=== PATIENT | female | born 1955 | race Caucasian/White ===

== ENCOUNTER 2016-11-08 19:32 | Emergency (ER) | payer MEDICARE, OTHER ==
[~2016-11-08 19:32] MED LIST: ACID REFLUX MED; ADVAIR 100-501 EAC1; ADVAIR 100-501 EAC1 IH; ADVAIR 1001 DISK W/D; ADVAIR 1001 DISK W/D IH; ADVAIR 250-501 EAC1 IH; ADVAIR 250-501 EACH IH; ADVAIR 2501 DISK W/1 IH; ADVAIR 2501 DISK W/D PO; ADVAIR 5001 DISK W/1; ALBUTEROL MININEB NEB; ALBUTEROL0.83 MG/ML; ALBUTEROL0.83 MG/ML IH; ALBUTEROL17 GM; ALBUTEROL17 GM INH; ALLERGY10 M1 PO; ALPRAZOLAM; ALPRAZOLAM PO; AMOXICILLIN875 MG PO; ANSAID100 MG PO; ARICEPT PO; ASPIRIN81 MG PO; ATARAX PO; ATIVAN; ATIVAN PO; BENADRYL25 M1 PO; BENZONATATE PO; BYSTOLIC10 MG PO; CARDIZEM30 M1 PO; CHOLESTEROL MED; CITALOPRAM HBR10 MG PO; DELTASONE20 MG PO; DOXEPIN PO; DOXYCYCLINE HY100 M1 PO; DOXYCYCLINE MO100 MG PO; ELIMITE60 G1 TP; FIORCET PO; FIORICET1 TAB PO; FLEXERIL10 M1 PO; FLEXERIL10 MG PO; FOSAMAX70 MG PO; HYDRALAZINE HC100 MG PO; IBUPROFEN800 MG PO; IMDUR-ER60 M1 PO; INHALERS; LACTULOSE10 G/15 ML PO; LASIX20 MG PO; LEVAQUIN PO; LEVOTHYROXINE100 MCG PO; LIPITOR; LIPITOR PO; LIPITOR20 MG; LIPITOR20 MG PO; LORTAB 5/500 TA1 TA2 PO; MEDROL DOSEPAK4 MG PO; MINOXIDIL2.5 MG PO; MOBIC15 MG PO; MOTRIN600 M1 PO; MOTRIN600 M2 PO; MULTIVITAMIN1 UDCAP PO; NAPROSYN500 MG PO; NAPROXEN PO; NAPROXEN250 MG PO; NORCO1 TAB 10/3 PO; NORFLEX100 M1 PO; OMEPRAZOLE PO; OMEPRAZOLE20 M2 PO; PATIENT'S PHARMACY; PHENERGAN PO; PHENERGAN VC W120 M1 PO; PHENERGAN W/CO120 ML PO; PHENERGAN25 M1; PHENERGAN25 M1 DOB; PHENERGAN25 M1 PO; PHENERGAN25 MG PO; PLAVIX PO; POTASSIUM CHLO20 ME1 PO; PRAVASTATIN SOD40 MG PO; PREDNISONE PO; PREDNISONE10 MG/DOSE PO; PREVACID PO; PRILOSEC; PRILOSEC PO; PRILOSEC20 M1 PO; PRILOSEC20 MG; PRILOSEC20 MG DOB; PRILOSEC20 MG PO; PROCTOFOAM-HC F10 GM PR; PROMETHAZINE D118 ML PO; PROMETHAZINE W118 M2 PO; PROTONIX PO; PROVENTIL INH0.5 ML HHN; REMERON PO; ROBAXIN 750750 M1 PO; ROBAXIN500 MG PO; SEROQUEL; SEROQUEL PO; SEROQUEL XR150 MG PO; STOOL SOFTENER1 EAC1 PO; SYMBICORT 160/4.6 G1 INH; SYMBICORT INH; TUSSIONEX PENN473 ML PO; TYLENOL #3; TYLENOL #3 PO; VIBRAMYCIN100 M1 PO; VICODIN 5/1 TAB 5/50 PO; VISTARIL PO; VOLTAREN50 MG PO; VOLTAREN75 MG PO; XANAX PO; XANAX0.5 M1; XANAX0.5 M1 PO; XANAX1 MG PO; XANAX2 MG PO; ZANAFLEX4 M1 PO; ZANTAC; ZITHROMAX; ZITHROMAX PO; ZOCOR PO; ZOFRAN ODT4 MG PO; ZOFRANODT; ZOLOFT PO; ZYLOPRIM100 MG PO; [UNRECOGNIZED DRUG - REMARK]; [UNRECOGNIZED DRUG - REMARK]; [UNRECOGNIZED DRUG - REMARK]; [UNRECOGNIZED DRUG - REMARK]
== END 2016-11-08 20:25 | disposition home or self-care (01) ==
LOC: SED 19:32
DX: J44.1 Chronic obstructive pulmonary disease with (acute) exacerbation (principal); F17.200 Nicotine dependence, unspecified, uncomplicated; K21.9 Gastro-esophageal reflux disease without esophagitis; F41.9 Anxiety disorder, unspecified; E78.5 Hyperlipidemia, unspecified
CPT/HCPCS: 94640; 99283

== ENCOUNTER 2016-11-09 11:45 | Emergency (ER) | payer MEDICARE, OTHER | END 2016-11-09 12:15 | disposition home or self-care (01) | LOC: SED 11:45 | DX: G43.909 Migraine, unspecified, not intractable, without status migrainosus (principal); F32.9 Major depressive disorder, single episode, unspecified; I10 Essential (primary) hypertension; J44.9 Chronic obstructive pulmonary disease, unspecified; K21.9 Gastro-esophageal reflux disease without esophagitis; F17.210 Nicotine dependence, cigarettes, uncomplicated; Z79.899 Other long term (current) drug therapy | CPT/HCPCS: 96372; 99284; J1170; J2550 ==

== ENCOUNTER 2016-11-18 19:25 | Emergency (ER) | payer MEDICARE, OTHER | END 2016-11-18 20:20 | disposition home or self-care (01) | LOC: SED 19:25 | DX: R04.0 Epistaxis (principal); F17.210 Nicotine dependence, cigarettes, uncomplicated; J44.9 Chronic obstructive pulmonary disease, unspecified | CPT/HCPCS: 96372; 99283; J1200 ==

== ENCOUNTER 2016-12-16 21:20 | Emergency (ER) | payer MEDICARE, OTHER ==
--- NOTE | ~2016-12-16 | EKG ---
PATIENT: DAVID GERMAIN UNIT #: [id number] Ventricular Rate: 94 BPM Atrial Rate: 94 BPM P-R Interval: 144 ms QRS Duration: 78 ms Q-T Interval: 342 ms QTC Calculation(Bezet): 427 ms P [place]: 69 degrees Calculated R [place]: 47 degrees Calculated T [place]: 67 degrees Diagnosis Line: Normal sinus rhythm Diagnosis Line: Normal ECG Diagnosis Line: When compared with ECG of 13-SEP-2016 08:59, Diagnosis Line: No significant change was found Diagnosis Line: Confirmed by MOJGAN RAIN MD ([id number]) on 12/20/2016 Diagnosis Line: 9:25:40 AM INTERPRETING MD: KOFFI JAMES
--- NOTE | ~2016-12-16 | CR72 ---
[facility]. [facility] A Service of [facility] RADIOLOGY TEXT RESULTS PATIENT: DAVID GERMAIN LOCATION: SED : 55 UNIT #: [id number] AGE: [address]: Juventino Alexander MD SEX: F ORDER DR: [id number] [place] [id number] E MR#: [id number] Acc #: [id number] NAME: DAVID GERMAIN. : 1955 SEX: F STUDY DATE/TIME: 12/16/2016 20:48 UNIT: SED ROOM: STUDY DESCRIPTION: CR Chest Single View Portable Attending Physician: Juventino Alexander M.D. Ordering Physician: Juventino Alexander M.D. Primary Care Physician: China Salazar M.D. MEDICAL IMAGING REPORT This report is preliminary unless electronic signature is present. EXAM Portable chest. HISTORY Shortness of air and wheezing for 5 days. FINDINGS Mild hyperinflation of both lungs. Cardiac size and pulmonary vascularity are normal. No airspace infiltrates or effusions. Small calcified granuloma left lower lung. IMPRESSION No acute findings. No active disease. Dictated by... Yared Bowen M.D. THIS IS AN ELECTRONICALLY VERIFIED REPORT Yared Bowen M.D. at 12/16/2016 11:48 PM FRITZ/renata TD: 12/16/2016 23:19 JOB #: [id number] MEDICAL IMAGING REPORT Page 1 of 1
[2016-12-16 21:25] LABS: BASOPHIL% 0.7 % (0-2.5); EOSINOPHIL% 1.1 % (0.0-7.0); HEMOGLOBIN 14.4 gm/dL (12.0-16.0); LYMPHOCYTE% 44.9 % (17.0-45.0); MEAN CELL VOLUME 93.5 FL (83-96); MEAN CORPUSCULAR HEMOGLOBIN 31.4 PG (28-34); MEAN CORPUSCULAR HGB CONC 33.5 g/dL (30-36); MEAN PLATELET VOLUME 7.5 FL (6.5-11.5); MONOCYTE# 0.3 X10e3 (0-1.0); MONOCYTE% 6.2 % (3.0-12.0); NEUTROPHIL# 2.1 X10e3 (1.5-7.1); NEUTROPHIL% 47.1 % (40-75); PLATELET COUNT 173 X10e3 (140-420); RED CELL DISTRIBUTION WIDTH 14.5 % (11.0-15.5); WHITE BLOOD COUNT 4.4 X10e3 (4.0-10.5)
[2016-12-16 21:26] LABS: DIFF IND NO
[2016-12-16 21:36] LABS: CALCIUM SERUM 9.5 mg/dL (8.4-10.2); CREATININE SERUM 0.7 mg/dL (0.6-1.4); GLOM FILT RATE Estimated 93.5 mL/min (>60); POTASSIUM 3.8 mmol/L (3.5-5.1)
[2016-12-16 21:40] LABS: POC - CKMB 1.1 ng/mL (0.0-7.9); POC - TROPONIN <0.05 ng/mL (<=0.05)
== END 2016-12-16 22:19 | disposition home or self-care (01) ==
LOC: SED 21:20
PROVIDERS: Emergency Medicine
DX: J44.1 Chronic obstructive pulmonary disease with (acute) exacerbation (principal); F41.9 Anxiety disorder, unspecified; K21.9 Gastro-esophageal reflux disease without esophagitis; F17.200 Nicotine dependence, unspecified, uncomplicated
CPT/HCPCS: 36415; 71010; 80048; 82553; 84484; 85025; 93005; 94640; 96374; 99284; J2930

== ENCOUNTER → 2016-12-28 | Outpatient (CLI) | payer MEDICARE, OTHER ==
--- NOTE | ~2016-12-28 | MY6 ---
[facility] A Service [facility] RADIOLOGY TEXT RESULTS PATIENT: DAVID GERMAIN LOCATION: [facility] : 55 UNIT #: [id number] AGE: [address]: Leila Robbins SEX: F ORDER DR: [id number] [place] [id number] [facility]. [place], [place] [address] [id number] O MR#: [id number] Acc #: [id number] NAME: DAVID GERMAIN. : 1955 SEX: F STUDY DATE/TIME: 12/28/2016 12:19 UNIT: [facility] ROOM: STUDY DESCRIPTION: MY Mammogram Dx Dig Vadim Attending Physician: Leila Robbins A.P.R.N. Referring Physician: Leila Robbins A.P.R.N. Ordering Physician: Leila Robbins A.P.R.N. Primary Care Physician: Leila Robbins A.P.R.N. MEDICAL IMAGING REPORT This report is preliminary unless electronic signature is present EXAM Bilateral digital diagnostic mammogram INDICATIONS Palpable mass in the left breast. PROCEDURE Bilateral CC, ML and left true lateral views obtained on a digital mammography unit FDA-approved CAD device utilized. COMPARISON STUDIES 03/11/14 FINDINGS Scattered fibroglandular density. No dominant mass. No suspicious calcification. Targeted left breast ultrasound shows no sonographic abnormality in the area of palpable concern at the 9-10 o'clock position. IMPRESSION Negative left diagnostic mammogram and left breast ultrasound. Recommend continued clinical followup. Suggest patient continue with yearly screening. Patients over the age of 40 are entered into a reminder system with target due date for the next mammogram. A result letter will also be sent to the patient. BIRADS: 1 Negative [facility] A Service [facility] RADIOLOGY TEXT RESULTS PATIENT: DAVID GERMAIN LOCATION: [facility] : 55 UNIT #: [id number] AGE: [address]: Leila Robbins SEX: F ORDER DR: Dictated by... Frantz Dickey M.D. THIS IS AN ELECTRONICALLY VERIFIED REPORT Frantz Dickey M.D. at 12/29/2016 7:02 AM AIMEE/robb TD: 12/28/2016 21:14 JOB #: [id number] MEDICAL IMAGING REPORT Page 1 of 1 COPY
--- NOTE | ~2016-12-28 | US24 ---
[facility] A Service [facility] RADIOLOGY TEXT RESULTS PATIENT: DAVID GERMAIN LOCATION: [facility] : 55 UNIT #: [id number] AGE: [address]: Leila Robbins SEX: F ORDER DR: [id number] [facility] [address] [facility]. [place], [place] [address] [id number] O MR#: [id number] Acc #: [id number] NAME: DAVID GERMAIN. : 1955 SEX: F STUDY DATE/TIME: 12/28/2016 12:49 UNIT: [facility] ROOM: STUDY DESCRIPTION: US Breast Unilateral Attending Physician: Leila Robbins A.P.R.N. Referring Physician: Leila Robbins A.P.R.N. Ordering Physician: Leila Robbins A.P.R.N. Primary Care Physician: Leila Robbins A.P.R.N. MEDICAL IMAGING REPORT This report is preliminary unless electronic signature is present EXAM Left breast ultrasound INDICATIONS Palpable mass in the left breast. PROCEDURE Snowden-scale imaging of the left breast in the area of palpable concern. COMPARISON STUDIES Concurrently for diagnostic mammogram. FINDINGS / IMPRESSION Refer to diagnostic mammogram for complete workup, as recommendations. BIRADS 1 Patients over the age of 40 are entered into a reminder system with target due date for the next mammogram. A result letter will also be sent to the patient. BIRADS: 1 Negative Dictated by... Frantz Dickey M.D. THIS IS AN ELECTRONICALLY VERIFIED REPORT Frantz Dickey M.D. at 12/29/2016 7:02 AM EED/robb TD: 12/28/2016 21:28 [facility] A Service [facility] RADIOLOGY TEXT RESULTS PATIENT: DAVID GERMAIN LOCATION: [facility] : 55 UNIT #: [id number] AGE: [address]: Leila Robbins SEX: F ORDER DR: JELENA #: [id number] MEDICAL IMAGING REPORT Page 1 of 1 COPY
== END | disposition home or self-care (01) ==
LOC: CMAM 12:10
DX: N64.4 Mastodynia (principal); Z87.2 Personal history of diseases of the skin and subcutaneous tissue
CPT/HCPCS: 76641; G0204

== ENCOUNTER 2017-02-05 19:21 | Emergency (ER) | payer MEDICARE, OTHER ==
--- NOTE | ~2017-02-05 | CR63 ---
[facility]. [facility] A Service of [facility] & [facility] RADIOLOGY TEXT RESULTS PATIENT: DAVID GERMAIN LOCATION: SED : 55 UNIT #: [id number] AGE: [address]: Juventino Alexander MD SEX: F ORDER DR: [id number] [address] [address] [id number] E MR#: [id number] Acc #: [id number] NAME: DAVID GERMAIN. : 1955 SEX: F STUDY DATE/TIME: 02/05/2017 20:14 UNIT: SED ROOM: STUDY DESCRIPTION: CR Chest 2 View Attending Physician: Juventino Alexander M.D. Ordering Physician: Juventino Alexander M.D. Primary Care Physician: Leila Robbins A.P.R.N. MEDICAL IMAGING REPORT This report is preliminary unless electronic signature is present. EXAM Chest, 2 views, dated 02/05/2017. COMPARISON Single view chest dated 12/16/2016. HISTORY Wheezing for 2 days. History of asthma. FINDINGS Two views of the chest were obtained. Stable calcified left lingular lung nodule, likely relating to old granulomatous disease. Lungs are mildly hyperinflated suspicious for mild emphysematous changes. No significant patchy dense consolidation, pleural effusion, or pneumothorax. Heart is of normal size. Mediastinum and bones are unremarkable. Dictated by... Tommy Morrison M.D. THIS IS AN ELECTRONICALLY VERIFIED REPORT Tommy Morrison M.D. at 02/08/2017 3:33 PM CPR/tmw TD: 02/06/2017 10:27 JOB #: [id number] MEDICAL IMAGING REPORT Page 1 of 1
== END 2017-02-05 21:45 | disposition home or self-care (01) ==
LOC: SED 19:21
DX: J44.0 Chronic obstructive pulmonary disease with (acute) lower respiratory infection (principal); F41.9 Anxiety disorder, unspecified; F17.200 Nicotine dependence, unspecified, uncomplicated
CPT/HCPCS: 71020; 99283

== ENCOUNTER 2017-03-07 18:55 | Emergency (ER) | payer OTHER ==
[~2017-03-07] VITALS: Ht 154.9 cm; Wt 62.6 kg
--- NOTE | ~2017-03-07 | EKG ---
PATIENT: DAVID GERMAIN UNIT #: [id number] Ventricular Rate: 98 BPM Atrial Rate: 98 BPM P-R Interval: 138 ms QRS Duration: 76 ms Q-T Interval: 324 ms QTC Calculation(Bezet): 413 ms P [place]: 75 degrees Calculated R [place]: 57 degrees Calculated T [place]: 65 degrees Diagnosis Line: Normal sinus rhythm Diagnosis Line: Normal ECG Diagnosis Line: When compared with ECG of 16-DEC-2016 20:52, Diagnosis Line: No significant change was found Diagnosis Line: Confirmed by ALYSSA GODINEZ MD ([id number]) on Diagnosis Line: 03/08/2017 12:56:54 PM INTERPRETING MD: GRETCHEN JAMES
--- NOTE | ~2017-03-07 | CR72 ---
[facility]. [facility] A Service of [facility] & [facility] RADIOLOGY TEXT RESULTS PATIENT: DAVID GERMAIN LOCATION: SED : 55 UNIT #: [id number] AGE: [address]: Gabriele Santos MD SEX: F ORDER DR: [id number] [place] [id number] E MR#: [id number] Acc #: [id number] NAME: DAVID GERMAIN. : 1955 SEX: F STUDY DATE/TIME: 03/07/2017 19:46 UNIT: SED ROOM: STUDY DESCRIPTION: CR Chest Single View Portable Attending Physician: Gabriele Santos M.D. Ordering Physician: Gabriele Santos M.D. Primary Care Physician: Leila Robbins A.P.R.N. MEDICAL IMAGING REPORT This report is preliminary unless electronic signature is present. EXAM Portable chest 03/07/2017 HISTORY 62-year-old female with shortness of air for 2 days. COMPARISON Chest 02/05/2017 FINDINGS Frontal chest demonstrates clear lungs. No pleural effusion or pneumothorax. Heart size and mediastinum are normal. Pulmonary vasculature normal. IMPRESSION No acute cardiopulmonary findings Dictated by... Azael Colvin M.D. THIS IS AN ELECTRONICALLY VERIFIED REPORT Azael Colvin M.D. at 03/08/2017 3:58 PM MANNY/prashant TD: 03/08/2017 05:45 JOB #: [id number] MEDICAL IMAGING REPORT Page 1 of 1
[2017-03-07 20:02] LABS: BASOPHIL# 0.1 X10e3 (0-0.3); BASOPHIL% 1.4 % (0-2.5); DIFF IND NO; EOSINOPHIL# 0.1 X10e3 (0-0.7); EOSINOPHIL% 2.2 % (0.0-7.0); HEMATOCRIT 43.8 % (35.0-45.0); HEMOGLOBIN 14.5 gm/dL (12.0-16.0); LYMPHOCYTE# 1.7 X10e3 (1.0-3.5); LYMPHOCYTE% 35.3 % (17.0-45.0); MEAN CELL VOLUME 93.9 FL (83-96); MONOCYTE# 0.5 X10e3 (0-1.0); MONOCYTE% 10.2 % (3.0-12.0); NEUTROPHIL# 2.5 X10e3 (1.5-7.1); NEUTROPHIL% 50.9 % (40-75); PLATELET COUNT 237 X10e3 (140-420); RED BLOOD COUNT 4.66 X10e (3.90-5.30); RED CELL DISTRIBUTION WIDTH 14.2 % (11.0-15.5); WHITE BLOOD COUNT 4.8 X10e3 (4.0-10.5)
[2017-03-07 20:13] LABS: PROTHROMBIN TIME (PATIENT) 11.3 SECONDS (9.5-12.4)
[2017-03-07 20:15] LABS: URINE SOURCE CLEAN CATCH
[2017-03-07 20:18] LABS: MICRO INDICATED? YES; URINE APPEARANCE CLEAR; URINE BILIRUBIN NEG (NEG); URINE BLOOD TRACE-INTACT (NEG); URINE COLOR YELLOW; URINE GLUCOSE NEG (NORM); URINE KETONE NEG (NEG); URINE LEUKOCYTE ESTERASE NEG (NEG); URINE NITRATE NEG (NEG); URINE PH 5.5 (5-8); URINE PROTEIN NEG (NEG); URINE SPECIFIC GRAVITY 1.025 (1.003-1.035); URINE UROBILINOGEN 0.2 MG/DL (NORM)
[2017-03-07 20:18] LABS: POC - CKMB <1.0 ng/mL (0.0-7.9); POC - TROPONIN <0.05 ng/mL (<=0.05)
[2017-03-07 20:20] LABS: ALBUMIN SERUM 4.3 g/dL (3.5-5.0); BILIRUBIN,TOTAL 0.2 mg/dL (0.2-2.0); CALCIUM SERUM 9.6 mg/dL (8.4-10.2); CREATININE SERUM 0.8 mg/dL (0.6-1.4); GLOM FILT RATE Estimated 79.1 mL/min (>60); PARTIAL THROMBOPLASTIN TIME 36.4 SECONDS (25.6-38.1); POTASSIUM 4.3 mmol/L (3.5-5.1); PROTEIN TOTAL SERUM 7.5 g/dL (6.0-8.3)
[2017-03-07 20:23] LABS: CULTURE INDICATED? NO; URINE BACTERIA NEG (NEG); URINE SQUAMOUS EPITHELIAL CELL OCCAS /[HPF]; URINE WBC 0-2 /[HPF] (0-5)
[2017-03-07 20:24] LABS: URINE MUCUS PRESENT
== END 2017-03-07 21:10 | disposition home or self-care (01) ==
LOC: SED 18:55
DX: J44.1 Chronic obstructive pulmonary disease with (acute) exacerbation (principal); G43.909 Migraine, unspecified, not intractable, without status migrainosus; F41.9 Anxiety disorder, unspecified; F17.200 Nicotine dependence, unspecified, uncomplicated
CPT/HCPCS: 36415; 71010; 80053; 81003; 82553; 84443; 84484; 85025; 85610; 85730; 93005; 94640; 96365; 96375; 99285; J0780; J1100; J1200; J1885; J3475

== ENCOUNTER 2017-03-17 12:55 | Emergency (ER) | payer OTHER ==
[2017-03-17] MEDS ORDERED: PHENERGAN PO (12:59)
== END 2017-03-17 14:31 | disposition home or self-care (01) ==
LOC: SED 12:55
DX: G43.909 Migraine, unspecified, not intractable, without status migrainosus (principal); J44.1 Chronic obstructive pulmonary disease with (acute) exacerbation; I10 Essential (primary) hypertension; K21.9 Gastro-esophageal reflux disease without esophagitis; F41.9 Anxiety disorder, unspecified; Z98.84 Bariatric surgery status; F17.210 Nicotine dependence, cigarettes, uncomplicated
CPT/HCPCS: 94640; 96372; 99283; J1170; J2550